=== PATIENT | female | born 1980 | race Caucasian/White ===

== ENCOUNTER 2025-02-14 05:33 | Emergency (ER) | payer SELFPAY ==
--- OUTSIDE RECORDS SUMMARY | 2025-02-07 09:00 | XMS_ITS | Continuity of Care Document ---
Author Organization [employer] Address [address] [facility] [place] [address] Phone Care Team Providers Care Pinking Machine Operator Name Role Phone Velvet Bhakta Unavailable Unavailable Allergies, Adverse Reactions, Alerts Substance Reaction Status Criticality No Known Allergies Active No Inform ation Medications Medication Instructions Dosage Effective Dates (start - stop) Status Comments ProAir HFA 90 mcg/actuation aerosol inhaler inhale 2 puff by inhalation route every 4 - 6 hours as needed - Active levothyroxine 150 mcg tablet take 1 tablet by oral route every day 150 MCG - Active PT NEEDS APPT dutasteride 0.5 mg capsule take 1 capsule by oral route every day 0.5 MG - Active minoxidil 2.5 mg tablet take 2 tablet by oral route every day 5 MG - Active Mounjaro 2.5 mg/0.5 mL subcutaneous pen injector inject (2.5MG) by subcutaneous route every week for 4 weeks 2.5 MG - Active progesterone micronized 100 mg capsule take 2 capsule by oral route every day for 12 days in the evening sequentially per 28 day cycle 200 MG - Active spironolactone 50 mg tablet take 1 tablet by oral route 2 times every day 50 MG - Active ibuprofen 800 mg tablet take 1 tablet by oral route 3 times every day with food 800 MG - Active amoxicillin 875 mg-potassium clavulanate 125 mg tablet take 1 tablet by oral route every 12 hours 1.00 tablet - No Longer Active levothyroxine 50 mcg tablet take 1 tablet by oral route every day 50 MCG - No Longer Active PT NEEDS APPT Serena Perles 100 mg capsule take 1 capsule by oral route 3 times every day as needed for cough - No Longer Active Procedures Procedure Date OFFICE/OUTPATIENT VISIT EST Telehealth OFFICE/OUTPATIENT VISIT EST A Routine Venipuncture OFFICE/OUTPATIENT VISIT EST Routine Venipuncture OFFICE/OUTPATIENT VISIT EST Telehealth OFFICE/OUTPATIENT VISIT EST D OFFICE/OUTPATIENT VISIT EST OFFICE/OUTPATIENT VISIT EST STREP SCREEN OFFICE/OUTPATIENT VISIT EST OFFICE/OUTPATIENT VISIT EST Advance Directives Directive Yes / No Effective Date File Name No Information Encounters Encounter Description Practice Location Reason(s) For Visit Diagnoses Date Provider Providers Copied on Encounter OFFICE/OUTPA TIENT VISIT EST [facility], [address] [facility] [place], [place], [id number], [place] tel:[phone] [facility] Acute (chief complaint) Body mass index (BMI) 20.0-20.9, adultAcute serous otitis media, right earAcute pharyngitis, unspecified 5 Robbie Verdin. [address] [place], [address], [place]. tel:[phone] [facility], [address] [facility] [place], [place], [id number], [place] tel:[phone] [facility] No Information 2 Kyleigh Ellington. [address] [place], [address], [place]. tel:[phone] Telehealth OFFICE/OUTPA TIENT VISIT EST [facility], [address] [facility] [place], [place], [id number], [place] tel:[phone] [facility] cough (chief complaint)T elehealth (chief complaint) Acute upper respiratory infection, unspecifiedNicot ine dependence, cigarettes, uncomplicated 1 Kyleigh Ellington. [address] [place] [address], [address], [place]. tel:[phone] Referring Provider: Rakel Arizmendi, [address] [place] [address], [address]. tel:[phone] OFFICE/OUTPA TIENT VISIT [facility], [address] [place] [address] [place], [place], [id number], [place] tel:[phone] [facility] Office visit (chief complaint) AlopeciaHypothyr oidism, unspecifiedFatig ueBody mass index (BMI) 26.0-26.9, adultNicotine dependence, cigarettes, uncomplicated 1 Kyleigh Ellington. [address] [place] [address], [address], [place]. tel:[phone] Referring Provider: Rakel Arizmendi, [address] [place] [address], [address]. tel:[phone] OFFICE/OUTPA TIENT VISIT [facility], [address] [place] [address], [id number], [place] tel:[phone] [facility] estab with pcp (chief complaint) Body mass index (BMI) 26.0-26.9, adultNeuralgiaTi ngling skinChest painFatigueNonsc arring hair lossNicotine dependence, cigarettes, uncomplicated 1 Kyleigh Ellington. [address] [place] [address], [address], [place]. tel:[phone] Referring Provider: Rakel Arizmendi, [address] [place] [address], [address]. tel:[phone] Telehealth OFFICE/OUTPA TIENT VISIT [facility], [address] [place] [address], [id number], [place] tel:[phone] [facility] Medicine cold symptoms. (chief complaint) Acute upper respiratory infection, unspecified 0 [facility] ons Alam Rosa. [address], [place], [address], [place]. tel:[phone] OFFICE/OUTPA TIENT VISIT [facility], [address] [place] [address] [place], [place], [id number], [place] tel:[phone] [facility] Anxiety (chief complaint) Anxiety 9 العلي Carmina. [address] [place], [place], [id number], [place]. tel:[phone] OFFICE/OUTPA TIENT VISIT [facility], [address] [facility] [place], [place], [id number], [place] tel:[phone] [facility] Sore Throat (chief complaint)D epression (chief complaint) DepressionAnxiet yAcute sinusitisTobacco abuse counselingPerson al history of other specified conditions 9 العلي Carmina. [address] [place], [place], [id number], [place]. tel:[phone] OFFICE/OUTPA TIENT VISIT [facility], [address] [facility] [place], [place], [id number], tel:[phone] [facility] Follow Up of Anxiety (chief complaint)F ollow Up of Depression (chief complaint) AnxietyDepressio n 8 Feiden Adiel. [address] [place], [place], [id number], [place]. tel:[phone] OFFICE/OUTPA TIENT VISIT [facility], [address] [facility] [place], [place], [id number], [place] tel:[phone] [facility] Cold symptoms (chief complaint)F ollow Up of Depression (chief complaint) Acute sinusitisAcute pharyngitisDepre ssionAnxiety 8 Feiden Adiel. [address] [place], [place], [id number], [place]. tel:[phone] Family History Family Member Type Diagnosis Age At Onset No Information Payers Payer name Insurance type Covered republican ID Authoriza tion(s) Self Pay Insurance Plan [id number] Social History Type Description Quantity Date Captured Comments Alcohol Use Details Unknown Caffeine Use Details Unknown Tobacco Use Status Heavy cigarette smok er (20-39 cigs/day) Smoking Status Heavy tobacco smoker Smoking Tobacco Use Details Cigarette: Age Started: 14 Cigarette: 1 Packs per day Sex Female Sexual Orientation Straight or heterosexual Gender Identity Female Vital Signs Date / Time: Height Weight BMI Pulse Rate Blood Pressure Temperature Respiratory Rate Body Surface Area Head Circumference Head Circ. Percentile Wt./Leon. Percentile BMI percentile Pulse Ox Inhaled Ox 2:05 PM 65.00 in 57.062 kg (125.80 lbs) 20.9 3 kg/m eter (2) 77 /min 110/72 mm[Hg] 18 /min 1.62 meter(2) 97 % 21 % Chief Complaint And Reason For Visit From encounter dated '02/07/2025 14:00'. Acute (chief complaint). Description: The client states the symptoms are acute. Pt presents to clinic today for acute visit c/o right ear pain and sore throat x 1-2 days. States her right ear has been throbbing and hurting up into her head giving her a headache. Denies any fever or chills. She is going on a vacation at the end of the week and worried about not being able to get into someone there. Reason For Referral Reason For Referral No Information Plan Of Treatment Date Type Action Status Goal Pap/HPV testing. Due on due Goal Depression scree tyler. Due on due Goal Td vaccine. Due on 25 due Goal Unhealthy drug u se screening. Due on due Goal Tdap. Due on due Goal Hepatitis C scre ening. Due on due Goal Influenza vaccin e. Due on due Goal HPV. Due on due Goal Lipid panel. Due on 025 due Goal Lifestyle educat ion regarding diet completed Goal Td vaccine. Due on 22 due Goal Pap/HPV testing. Due on due Goal Lipid panel. Due on due Goal Depression scree tyler. Due on due Goal Influenza vaccin e. Due on due Goal Tdap. Due on due Goal Pap/HPV testing. Due on due Goal Depression scree tyler. Due on due Goal Lipid panel. Due on due Goal Tdap. Due on due Goal Influenza vaccin e. Due on due Goal Td vaccine. Due on due Goal Influenza vaccin e. Due on due Goal Td vaccine. Due on due Goal Depression scree tyler. Due on due Goal Lipid panel. Due on due Goal Tdap. Due on due Goal Pap/HPV testing. Due on due Goal Lifestyle educat ion regarding diet completed Goal Pap/HPV testing. Due on due Goal Influenza vaccin e. Due on due Goal Tdap. Due on due Goal Td vaccine. Due on due Goal Depression scree tyler. Due on due Goal Lifestyle educat ion regarding diet completed Goal Pap/HPV testing. Due on due Goal Depression scree tyler. Due on due Goal Tdap. Due on due Goal Td vaccine. Due on 19 due Goal Influenza vaccin e. Due on due Goal Influenza vaccin e. Due on due Goal Pap/HPV testing. Due on due Goal Tdap. Due on due Goal Depression scree tyler. Due on due Goal Td vaccine. Due on 19 due Goal Pap/HPV testing. Due on due Goal Tdap. Due on due Goal Td vaccine. Due on 18 due Goal Influenza vaccin e. Due on due Goal Td vaccine. Due on 18 due Goal Tdap. Due on due Goal Depression scree tyler. Due on due Goal Influenza vaccin e. Due on due Goal Pap/HPV testing. Due on due Future Order: Radiology Order MR I Brain w/o Contrast ([id number]), Added on: New Future Order: Radiology Order EC G, Complete ([id number]), Added on: New History Of Present Illness Encounter Date Complaint History Of Prese nt Illness Acute The client state s the symptoms are acute. Pt presents to clinic today for acute visit c/o right ear pain and sore throat x 1-2 days. States her right ear has been throbbing and hurting up into her head giving her a headache. Denies any fever or chills. She is going on a vacation at the end of the week and worried about not being able to get into someone there. Telehealth This visit was c ompleted using an audio tool due to the restrictions of the COVID-19 pandemic. All issues as below were discussed and addressed but no physical exam was performed unless allowed by visual confirmation using the live video and audio tool. If it was felt that the patient should be evaluated in clinic then they were directed there. Patient verbally consented to visit. cough Onset: 17 days a go. The patient describes the cough as hacking. It occurs occasionally. The problem has improved. Context: sick family member. Symptoms are aggravated by exertion. Associated symptoms include cough and fatigue. Pertinent negatives include chills, dyspnea, fever, night sweats, post-nasal drainage, sinus pressure and wheezing. Additional information: still feels rattly." Cough is harsh at times. Has tried taking NyQuil. Son sick before her. ST but that has relieved. No known exposure to Covid+. Not vaccinated. Denies fever or chills. Office visit 40-year-old charlee pittman patient comes in today for follow-up. She was last seen on 12/05/2020 where she had labs drawn at that time. She was having concerns of hair loss. Her labs did indicate hypothyroid. She was started on levothyroxine. She verbalized that she is tolerating the medication well. However, she reports that her hair loss got significantly worse. As a result, she shaved her head. She verbalized that she is concerned that perhaps her breast implants are causing issue. estab with pcp 40-year-old charlee pittman patient comes in today with concerns of hair loss, fatigue, and dry itchy skin. She reports that the symptoms have significantly worsened over the past 3 weeks. She denies any new hair products. She does admit to dying her hair, but reports that she has not done so recently. Her hair does not feel coarse or dry. However, the hair loss is significantly worse.Additionally, patient brought up that she has issues with numbness and tingling to the right side of her face. She reports that this has gone on intermittently for years and has never been evaluated. cold symptoms. cold symptoms. (comments) This v isit was completed using a live video and audio [employer] application tool due to the restrictions of the COVID-19 pandemic. All issues as below were discussed and addressed but no physical exam was performed unless allowed by visual confirmation using the live video and audio tool. If it was felt that the patient should be evaluated in clinic then they were directed there. Patient verbally consented to visit.Reports woke up feeling terrible.Report symptoms started thursday. Reports no SOA or chest pressure. Reports nasal congestion, body aches, and headache that wont go away.Reports some scratchy throat and mild cough. Denies loss of taste or smell.Has no insurance and therefore doesn't want to have to pay for any swabs.Patient reports she is currently quarantining. Anxiety Anxiety (comments) F/u on Wellbu harlan therapy. Pt states her Wellbutrin is not working as well as her Prozac did in the past. She still notes some irritability. She is unsure if this is from lack of benefit of Wellbutrin therapy or if this is part of her recovery from hysterectomy that she had in Jul 2018. She did not like Prozac therapy r/t wt gain, and wanted to try Wellbutrin. She also notes some impulsive eating thoughts and would like to try topamax therapy to see if it will control these thoughts. Topamax has been successful in the past.She denies SI/HI and SE. Sore Throat (comments) C/o sore throat x 2 weeks. States feels scratchy and worse in AM. Cough and nasal stuffiness. Pt had hysterectomy last Thursday--feeling well and resting at home as directed. Depression Sore Throat Depression (comments) Pt was pre viously treated with Prozac but did not like it because of weight gain. Pt states she had eating disorder and is concerned with gaining wt. States she gained 40# with Prozac. Pt is interested in starting Wellbutrin to help with depression, prevent wt gain, and to help with smoking cessation.Pt had used topamax when younger to help with eating disorder (bulimia) which she found helpful. She is interested in starting that med again. Pt is not currently in counseling. Follow Up of Depression States t hat she used to be on Topamax when she was dealing with her bulemia, making it easier not to binge and purge. Follow Up of Anxiety This is a f ollow up visit. The patient does not present with anxious/fearful thoughts, depressed mood, difficulty concentrating, difficulty falling asleep, difficulty staying asleep, excessive worry, fatigue, racing thoughts, restlessness or thoughts of or suicide. The patient denies any irritability. Additional information: States that she is doing much better on the prozac but has noticed that she still has impulses to do bad things such as bahena, shop etc. Follow Up of Depression This is an initial visit. The symptoms occur constantly. The patient presents with depressed mood, difficulty concentrating and fatigue but denies anxious/fearful thoughts, decreased need for sleep, difficulty falling asleep, difficulty staying asleep, excessive worry, racing thoughts, restlessness or thoughts of or suicide. The patient's risk factors include history of depression. The patient's risk factors exclude family history of depression, family history of anxiety, family history of bipolar disorder and history of suicidal attempts. The patient denies any aggravating factors. Interventions the patient has tried have not provided any relief. The Follow Up of Depression is associated with irritability. The patient denies any headache and nausea. Additional information: Has tried lexapro, celexa, prozac in the past and feels that prozac worked the best and would like to get back on it. Cold symptoms Onset: 3 weeks a go. The patient describes the cough as productive (of yellow sputum). The problem has become gradually worse. Symptoms are aggravated by lying down. There are no relieving factors. Associated symptoms include chills, cough, dyspnea, fatigue, nasal congestion, sinus pressure and sore throat. Pertinent negatives include fever. Additional information: Symptoms have been off and on but continue to get worse. Nasal drainage is thick and yellow. Functional Status Date Functional Assessmen t Pain Score 07/29 Instructions Date Instruction Additional Infor mation Giving encouragement to exercise Related to Body mass index [BMI] 20.0-20.9, adult Lifestyle education regarding di et Related to Body mass index [BMI] 20.0-20.9, adult Abx prescribedProAir prescribed Tessalon Perles prescribedRecommended taking OTC antihistamine Increase fluids and restEncouraged to use humidifier at bedsideContact office if symptoms worsen or does not improveWorsening precautions discussed Related to Acute upper respiratory infection, unspecified Encouraged pt to stop smoking Re lated to Nicotine dependence, cigarettes, uncomplicated Encouraged patient t o discontinue smoking. Related to Nicotine dependence, cigarettes, uncomplicated Labs todayRecommende d to increase water intakeTake daily multivitamin Consider referral to specialist Related to Alopecia Giving encouragement to exercise Related to Body mass index [BMI] 26.0-26.9, adult Lifestyle education regarding di et Related to Body mass index [BMI] 26.0-26.9, adult Would like to order MRI brain w/o contrast ([facility] financial assistance information provided to pt, instructed pt to contact clinic when arrangements have been madeWorsening precautions discussed Related to Tingling skin Encouraged pt to stop smoking Re lated to Nicotine dependence, cigarettes, uncomplicated Continue multi-vitam in Encouraged to avoid over-processing or excessive coloring of hairLabs today Related to Nonscarring hair loss EKG- sinus rhythmLab s todayWorsening precautions discussed Related to Chest pain Labs today Related to Neura lgia Giving encouragement to exercise Related to Body mass index [BMI] 26.0-26.9, adult Lifestyle education regarding di et Related to Body mass index [BMI] 26.0-26.9, adult Discussed with annette aparicio that it appears to be caused by a virus as there is no obvious source of bacterial infection at this time on exam. patient verbalized understanding. Increase fluid intake.Increase vitamin C intake. Wash hands frequently. Avoid sick contacts. Get plenty of rest.Humidifier in room to alleviate symptoms.Okay to use OTC mucinex, cough drops, and vicks to alleviate symptoms.Okay to use OTC flonase, one spray in each nostril daily to alleviate symptoms.Okay to use OTC Tylenol as needed for symptom relief, not to exceed 3,000mg a day.If symptoms worsen or fail to improve in a week, please return to clinic.Discussed s/s of emergency and to go to ER if these occur and patient verbalized understanding. Follow up as indicated.Discussed return, ER, and COVID 19 precautions.Patient verbalizes understanding of the above education and instructions. Related to Acute upper respiratory infection, unspecified Continue WellbutrinS tart Topamax 25mg BIDPt to call us Thursday with a status reportF/u 1 month with labs--cmp, cbc, tsh Related to Anxiety Follow up with surgeon as schedu led Related to Personal history of other specified conditions AugmentinSalt water gargles PRNRestIncrease fluid intake; non-caffeinated; warm teas with honeyTylenol or Ibuprofen for pain and fever PRNFollow up as needed. Call office for worsening symptoms or concerns. Related to Acute sinusitis see #1 Related to Anxie ty Start Wellbutrin XLMonitorF/u 1 month Related to Depression 1. Sore throat instr uctions given: Most sore throats last 3 to 5 days. 2. Get extra sleep, drink extra fluids, take a non-prescription pain reliever, suck on hard candy or throat lozenges, use OTC throat spray. 3. [over 8 yo] gargle with warm salt water - about 1/4 teaspoon of salt in a cup of water.4. The patient was advised to call the office if symptoms worsen or do not improve. Related to Acute pharyngitis 1. Get extra sleep, 2. Use a humidifier , 3. Drink extra fluids, 4. Use saline nose drops, *5. Take a non-prescription pain reliever , 6. Take OTC cold and cough medicine 7. The patient was advised to call the office if symptoms worsen or do not improve. Related to Acute sinusitis Assessments Type Assessment Date assessment Body mass index (BMI) 20.0-20.9, adult assessment Acute serous otitis media, right ear assessment Acute pharyngitis, unspecified J Mental Status Date Cognitive Assessment Orientation - [place] ed to time, place, person, situation. Patient Care Teams Name Effective Dates (start - stop) Status Members No Information
--- OUTSIDE RECORDS SUMMARY | 2025-02-14 04:27 | XMS_ITS | Encounter Summary ---
Author Organization [facility] Address [address] [place] [address] Care Team Providers Care Stick Puller Name Role Phone Unavailable Primary Care Provider Unavailabl e Reason for Visit * Reason Comments Vaginal Pain cyst Encounter Details Date Type Department Care Team (Late st Contact Info) Description 02/14/2025 4:27 AM CDT - 02/14/2025 4:50 AM CDT Emergency [facility] Emergency Medicine [address] [place] [address] Pollo Guevara MD [address] [facility] [address] [place] [phone] Pelvic pain in female (Primary Dx) Discharge Disposition: Home or Self Care Social History Tobacco Use Types Packs/Day Years Used Date Smoking Tobacco: Every Day Cigarettes Smokeless Tobacco: Never Tobacco Cessation:Ready to Q uit: Not Asked; Counseling Given: Not Answered Alcohol Use Standard Drinks/Week Comments Not Currently 0 (1 standard drink = 0.6 oz pur e alcohol) Comments No Sex and Gender Information Value Date Recorded Sex Assigned at Not on file Legal Sex Female 4:04 AM CDT Gender Identity Not on file Sexual Orientation Not on file documented as of this encounter Last Filed Vital Signs Vital Sign Reading Time Taken Comments Blood Pressure 104/68 02/14/2025 4:13 AM CDT Pulse - - Temperature 36.6 C (97.8 F) 02/14/2025 4:13 AM CDT Respiratory Rate 18 02/14/2025 4:13 AM CDT Oxygen Saturation 99% 02/14/2025 4:13 AM CDT Inhaled Oxygen Concentration - - Weight 57.5 kg (126 lb 12.8 oz) 02/14/2025 4:13 AM CDT Height 157.5 cm (5' 2 ) 02/14/2025 4:13 AM CDT Body Mass Index 23.19 02/14/2025 4:13 AM CDT documented in this encounter Discharge Instructions * Discharge Instructions* Pollo Guevara MD - 02/14/2025 4:40 AM CDT Take naproxen or ibuprofen scheduled for the next 4 to 5 days. Try to avoid pressure on the area hecan also use a warm compress not hot enough to burn every 1-2 hours. When you return home follow-upwith your manufacturing project manager or primary care provider The area becomes much more painful starts to drain or interferes with urination or bowel movements return to the emergency department * Attachments The following attachments cannot be sent through Care Everywhere. * Bartholin Gland Cyst (Beninese) documented in this encounter Medications at Time of Discharge levothyroxine 150 mcg tablet Take 150 mcg by mouth daily in the morning. spironolactone (ALDACTONE) 50 mg tablet Take 100 mg by mouth daily. progesterone micronized (PROMETRIUM) 100 mg Capsule Take 100 mg by mouth daily. dutasteride (AVODART) 0.5 mg Capsule Take 0.5 mg by mouth daily. minoxidiL (LONITEN) 2.5 mg tablet Take 2.5 mg by mouth daily. tirzepatide 2.5 mg/0.5 mL Pen Injector Inject 2.5 mg by subcutaneous injection every 7 days. amoxicillin-clav ulanate (AUGMENTIN) 875-125 mg tablet Take 1 Tablet by mouth every 12 hours. documented as of this encounter ED Notes * Elvia Morales RN - 02/14/2025 4:24 AM CDT Gerri Lance 45 y.o. female, arrived to the ED via TRANSPORTATION: private vehicle for complaints of cyst in mario alberto area with pain. Per patient noticed cyst about 1.5 years ago, three days ago began to hurt has gradually gotten worse, rates pain 5/10 constant burning and stabbing, states it is the size of ping pong ball, unable to sit or stand. Chief Complaint Patient presents with Vaginal Pain cyst . Vitals taken, patient placed on monitor, clothing removed as needed per policy, privacy provided to patient. Respiratory: WDL - Regular rhythm, symmetrical chest expansion, no dyspnea , Cardiac/Circulatory: WDL - No numbness or tingling, no chest pain , Skin: WDL - Normal color for ethnicity, skin intact, patient is Alert and Oriented x4, pain scale: 5/10, findings; bleeding: without any bleeding noted. Behavior during evaluation: appropriate. Belongings secured, patient Weapons assessment: denied possession of any weapons or firearms at this time. Patient comforted, all questions answered to the best of the staff's ability, education performed, and left patient in the room with the call light in reach, bed in lowest position, wheels locked, side rails up, at bedside. * Pollo Guevara MD - 02/14/2025 4:04 AM CDT HISTORY OF PRESENT ILLNESS Patient is a 45-year-old with medical history of thyroid disease. She is here with complaints of swelling and painful mass in her perineal area. It is on the right side posterior lateral area inside the labia majora She states this mass has been there for the last 2 years has not caused her any problems however after a long drive from [facility] she noticed becoming much more painful she is able to get some relief with changing positions but when she palpates or sits forward pain is much more severe. She tried a sitz bath does not take any medicine or other therapies for this. No drainage no difficulty urinating or having a bowel movement no history of gynecological cancer Denies fevers chest pain shortness of breath Vaginal Pain PAST MEDICAL HISTORY REVIEWED MEDICAL: Patient has a past medical history of Thyroid disease. SURGICAL: Patient has a past surgical history that includes hysterectomy and breast augmentation (Bilateral). ALLERGIES Patient has no known allergies. PHYSICAL EXAM INITIAL VS BP: 104/68 (02/14/25 0413), Heart Rate: 84 bpm (02/14/25 0413), Resp: 18 (02/14/25 0413), Pulse: (not recorded), Temp: 97.8 ??F (36.6 ??C) (02/14/25412), Temp src: Temporal (02/14/25412), SpO2: 99 % (02/14/25412), Height: 5' 2 (157.5 cm) (02/14/25412), Weight: 57.5 kg (126 lb 12.8 oz) (02/14/25412), BMI (Calculated): 23.18 (02/14/25412) No LMP recorded. Patient has had a hysterectomy. Physical Exam Vitals and nursing note reviewed. Exam conducted with a mineral economist present. Constitutional: Appearance: Normal appearance. HENT: Head: Normocephalic and atraumatic. Nose: Nose normal. Cardiovascular: Rate and Rhythm: Normal rate and regular rhythm. Pulmonary: Effort: Pulmonary effort is normal. Breath sounds: Normal breath sounds. Genitourinary: Labia: Right: Lesion present. Comments: Golf ball sized area of induration with no fluctuance discharge or erythema inside the labia majora on the right perineum distant with a large Bartholin cyst Neurological: Mental Status: She is alert. DIAGNOSTICS LAB: No data to display RADIOLOGY: No orders to display EKG: PROCEDURES Procedures MEDICAL DECISION MAKING AND PLAN OF CARE Medical Decision Making Patient is a 45-year-old with a lesion in her perineum Most likely a large bartholin. Given size location within the labia minora and lack of ultrasound capabilities at this time would not recommend incision. Does not appear to be infected would recommend this be dealt with by gynecology. In the meantime will have her use sitz bath's warm compresses and anti- inflammatories and try to avoid pressure on the area. No signs of infections at this time butdid give her return precautions to return if she has any discharge fluctuation or difficulty urinating or having a bowel movement After speaking with and examining patient, reviewing today's visit, labs, xray and extensive nursesnotes- I feel patients complaints are not acute nor life threatening. The patient's evaluation, exam, findings and plan of care were discussed with the patient here in the emergency department. I have discussed that this focused care is based on an urgent and emergent basis and in no way representscomplete or continued care of their entire health conditions and that follow up care is an important part of the care and plan they have received here in the emergency department. They have voiced understanding and are comfortable with the plan of care. Risk Prescription drug management. Clinical Scoring & Consults Medications Administered During the ED Stay from 02/14/2025 0404 to 02/14/2025444 Date/Time Order Dose Route Action 02/14/2025443 CDT ibuprofen (MOTRIN) tablet 400 mg 400 mg Oral Given . New Prescriptions for this Encounter LAST VS BP: 104/68 (02/14/25412), Heart Rate: 84 bpm (02/14/25412), Resp: 18 (02/14/25412), Pulse: (not recorded), Temp: 97.8 ??F (36.6 ??C) (02/14/25412), Temp src: Temporal (02/14/25412), SpO2: 99 % (02/14/25412) CLINICAL IMPRESSION Final diagnoses: [R10.2] Pelvic pain in female (Primary) DISPOSITION, EDUCATION AND MEDICATION RECONCILIATION Medications reconciled. See after visit summary for patient education on discharged patients. ED Disposition ED Disposition Discharge Condition Stable User Pollo Guevara MD Date/Time ThuFeb 14, 2025 4:39 AM Comment -- ATTESTATION STATEMENTS documented in this encounter Plan of Treatment Not on file documented as of this encounter Visit Diagnoses Diagnosis Pelvic pain in female- Primary Unspecified symptom associated with female genital organs documented in this encounter Administered Medications Inactive Administered Medications - up to 3 most recent administrations Medication Order MAR Action Action Date Dose Rate Site ibuprofen (MOTRIN) tablet 400 mg 400 mg, Oral, ONE TIME ONLY, 1 dose, On Thu02/14/25 at 044, Routine Given 02/14/2025 4:44 AM CDT 400 mg documented in this encounter Active and Recently Administered Medications Times are shown in CDT. Scheduled Medication Order 02/12/2025 02/13/2025 02/14/2025 ibuprofen (MOTRIN) tablet 400 mg (COMPLETED) 400 mg, Oral, ONE TIME ONLY, 1 dose, On Thu02/14/25 at 0445, Routine 0444 (Given - Provid er: Elvia Morales, RN) documented in this encounter
--- OUTSIDE RECORDS SUMMARY | 2025-02-14 05:41 | XMS_ITS | Encounter Summary ---
Author Organization [facility] Address [address] [facility] Attn: Epic Prelude ADT [place] [id number] Care Team Providers Care Ccnp Name Role Phone Unavailable Primary Care Provider Unavailabl e Encounter Details Date Type Department Care Team (Latest Contact Info) Description 02/14/2025 Travel Social History Tobacco Use Types Packs/Day Years Used Date Smoking Tobacco: Every Day Cigarettes Smokeless Tobacco: Never Alcohol Use Standard Drinks/Week Comments Not Currently 0 (1 standard drink = 0.6 oz pur e alcohol) Comments No Sex and Gender Information Value Date Recorded Sex Assigned at Not on file Legal Sex Female 4:04 AM CDT Gender Identity Not on file Sexual Orientation Not on file documented as of this encounter Plan of Treatment Not on file documented as of this encounter Visit Diagnoses Not on filedocumented in this encounter
--- OUTSIDE RECORDS SUMMARY | 2025-02-14 05:41 | XMS_ITS | Clinical Summary ---
Author Organization [facility] Address [address] [facility] [address] [place] [address] Phone Care Team Providers Care Certified Court Interpreter Name Role Phone Unavailable Primary Care Provider Unavailabl e Allergies No known active allergies Medications levothyroxine 150 mcg tablet Take 150 mcg by mouth daily in the morning. Active spironolactone (ALDACTONE) 50 mg tablet Take 100 mg by mouth daily. Active progesterone micronized (PROMETRIUM) 100 mg Capsule Take 100 mg by mouth daily. Active dutasteride (AVODART) 0.5 mg Capsule Take 0.5 mg by mouth daily. Active minoxidiL (LONITEN) 2.5 mg tablet Take 2.5 mg by mouth daily. Active tirzepatide 2.5 mg/0.5 mL Pen Injector Inject 2.5 mg by subcutaneous injection every 7 days. Active amoxicillin-cla vulanate (AUGMENTIN) 875-125 mg tablet Take 1 Tablet by mouth every 12 hours. Active Encounters Date Type Department Care Team Description 02/14/2025 4:27 AM CDT - 02/14/2025 4:50 AM CDT Emergency [facility] Emergency Medicine [address] [facility] [address] [place] [phone] Pollo Guevara MD Pelvic pain in female (Primary Dx) Discharge Disposition: Home or Self Care 02/14/2025 Travel from Last 3 Months Social History Tobacco Use Types Packs/Day Years [...] on file Sexual Orientation Not on file Last Filed Vital Signs Vital Sign Reading [...] Mass Index 23.19 02/14/2025 4:13 AM CDT Plan of Treatment Health Maintenance Due Date Last Done Comments DTAP/TDAP/TD VACCINES (1 - Tdap) 1998 HEPATITIS B VACCINES (1 of 3 - 19+ 3-dose series) 1998 HPV/Cotest (21-29) 01/28/2000 CERVICAL CANCER SCREENING 2009 HPV/Cotest (30-65) 2009 PAP SMEAR 2009 BREAST CANCER SCREENING 2019 COLORECTAL SCREENING 01/28/2024 Colorectal Cancer Screening 01/28/2024 FIT-DNA Q 3 years 01/28/2024 FIT/FOBT Q 1 year 01/28/2024 Flex Sig/CT Colonography Q 5 years 01/28/2024 INFLUENZA VACCINE (#1) 2025 HPV VACCINES Aged Out No longer eligi ble based on patient's age to complete this topic
[2025-02-14 05:42] VITALS: BP 125/73; PULSE 65; RESP 16; TEMP 36.6; O2SAT 98; BMI 23.0
[2025-02-14 06:22] VITALS: BP 109/61; PULSE 69; O2SAT 97
[2025-02-14 06:22] LABS: Glucose Urine UA Negative (Normal); Nitrate Urine Negative (Negative); Specific Gravity, Urine 1.029 (1.005-1.030)
[2025-02-14 06:26] LABS: Add Urine Microscopic? YES
--- NOTE | 2025-02-14 06:42 | W.ED.FEMALGU ---
HPI - Female Genitourinary General: Chief complaint: Urogenital-Female Stated complaint: Cyst On Vagina\Pain Time Seen by Provider: 02/14/25 05:53 History of Present Illness: 45-year-old female who presents to the emergency room complaining of a labial cyst and pain. Patient states it has been present for several months. Increasing in size and pain for last few days. She does not have any drainage. Associated symptoms: Deny vaginal discharge Related Data Home Medications ?Medication ?Instructions ?Recorded ?Confirmed amoxicillin 875 mg-potassium 1 tab PO BID 02/14/25 02/14/25 clavulanate 125 mg tablet dutasteride 0.5 mg capsule 0.5 mg PO DAILY 02/14/25 02/14/25 levothyroxine 150 mcg capsule 150 mcg PO DAILY 02/14/25 02/14/25 minoxidil 2.5 mg tablet 2.5 mg PO DAILY 02/14/25 02/14/25 progesterone micronized 100 mg 100 mg PO QAM 02/14/25 02/14/25 capsule spironolactone 50 mg tablet 50 mg PO DAILY 02/14/25 02/14/25 tirzepatide (weight loss) 7.5 7.5 mg SUBCUT 02/14/25 02/14/25 mg/0.5 mL subcutaneous pen injector (Zepbound) Previous Rx's ?Medication ?Instructions ?Recorded hydrocodone 5 mg-acetaminophen 325 1 tab PO Q6H PRN pain #10 tabs 02/14/25 mg tablet oxycodone-acetaminophen 5 mg-325 1 tab PO Q8H PRN pain #20 tabs 02/14/25 mg tablet (Percocet) Allergies Allergy/AdvReac Type Severity Reaction Status Date / Time No Known Allergies Allergy Verified 02/14/25 09:46 Review of Systems : Denies: vaginal bleeding or vaginal discharge PFS ED PFSH: Family History Denies family history of Colon cancer Ovarian cancer Diabetes Heart disease Breast cancer Hypertension Uterine cancer Thyroid disease Stroke Social History Smoking and tobacco/nicotine status: never used tobacco/nicotine Physical Exam : OTHER: Nurse present patient placed in dorsolithotomy position patient has a large bore Cage and cyst approximately 2 to 3 cm in diameter right vaginal wall extending posteriorly. No active drainage no pointing. Course Vital Signs: Vital signs: Vital Signs Temperature 97.9 F 02/14/25 05:42 Pulse Rate 64 02/14/25 07:10 Respiratory Rate 16 02/14/25 07:10 Blood Pressure 98/62 02/14/25 07:10 Pulse Oximetry 98 02/14/25 07:10 Oxygen Delivery Me thod Room Air 02/14/25 05:42 MDM - Female Medical Decision Making Patient has a rather large Bartholin cyst extending towards the perineum. No redness erythema or induration at this time no sign of active infection. Will discharge patient home with talk to Dr. Porter who is on for gynecology who will see her in the office and offered definitive care. Advised patient to remain n.p.o. until she sees him. She has appointment with Dr. Porter at his office at 1030 this morning. No emergent condition at this time this can be managed as an outpatient through the office Medical Records I reviewed the patient's medical records. Lab Data I reviewed the patient's lab results. Laboratory Results HCG, Qual Negative (Negative) 02/14/25 06:15 Urine Color Dark yellow (Yellow) A 02/14/25 06:08 Urine Appearance Clear (CLEAR) 02/14/25 06:08 Urine pH 5.5 (5-7) 02/14/25 06:08 Ur Specific [place] 1.029 (1.005-1.030) 02/14/25 06:08 Urine Protein Trace (Negative) A 02/14/25 06:08 Urine Glucose (UA) Negative (Normal) 02/14/25 06:08 Urine Ketones Trace (Negative) 02/14/25 06:08 Urine Blood Negative (Negative) 02/14/25 06:08 Urine Nitrate Negative (Negative) 02/14/25 06:08 Urine Bilirubin Negative (Negative) 02/14/25 06:08 Urine Urobilinogen 1.0 mg/dL (Negative) 02/14/25 06:08 Ur Leukocyte Esterase Negative (Negative) 02/14/25 06:08 Urine RBC 0-2 /hpf (0-2) 02/14/25 06:08 Urine WBC 0-5 /hpf (0-5) 02/14/25 06:08 Ur Squamous Epith Cells 0-5 /hpf (0-5) 02/14/25 06:08 Amorphous Sediment Not Reportable 02/14/25 06:08 Urine Bacteria None seen /hpf (NONE) 02/14/25 06:08 Hyaline Casts 2.05 /lpf 02/14/25 06:08 No radiology studies performed this visit Discharge Plan Discharge Patient Disposition: Home Clinical Impression: Cyst of Bartholin's gland duct Condition: Stable Prescriptions: New hydrocodone-acetaminophen 5-325 mg tablet 1 tab PO Q6H PRN (Reason: pain) Qty: 10 0RF No Action minoxidil 2.5 mg tablet 2.5 mg PO DAILY spironolactone 50 mg tablet 50 mg PO DAILY progesterone micronized 100 mg capsule 100 mg PO QAM Rx Instructions: off 7 days; repeat cycle amoxicillin-pot clavulanate 875-125 mg tablet 1 tab PO BID dutasteride 0.5 mg capsule 0.5 mg PO DAILY levothyroxine 150 mcg capsule 150 mcg PO DAILY Zepbound 7.5 mg/0.5 mL pen injector 7.5 mg SUBCUT oxycodone-acetaminophen [Percocet] 5-325 mg tablet 1 tab PO Q8H PRN (Reason: pain) Qty: 20 0RF Discharge Orders: Discharge ED (Routine); Ordered 02/14/25 Ordered By: Aki Marion Patient Instructions: Bartholin Cyst (ED), Opioid Safety, Pain Management, Patient Portal & Guille Instructions Activity Restrictions/Additional Instructions: Thank you for choosing [facility] for your healthcare needs today. It is very important that you follow up as instructed or that you return to the Emergency Department should you have concerns or if your condition changes or worsens in any way. You were seen in the emergency room with a Bartholin's cyst on the right labia. I discussed with a revenue accounting manager on-call Dr. Porter. He will see you this morning at 1030 in his office. Print Language: Urdu Coding Level of Care Code ED Seamless Hosiery Knitter for [place] Lew
[2025-02-14 06:54] LABS: HCG, Serum Qual Negative (Negative)
[2025-02-14 07:10] VITALS: BP 98/62; PULSE 64; RESP 16; O2SAT 98
== END 2025-02-14 07:25 | disposition home or self-care (01) ==
PROVIDERS: Emergency Provider Family Medicine
DX: N75.0 Cyst of Bartholin's gland (principal)
CPT/HCPCS: 36415; 81001; 84703; 99283

== ENCOUNTER 2025-02-14 10:59 | Day surgery (SDC) | payer SELFPAY ==
[2025-02-14] VITALS (8 sets, daily range): BP systolic 94–104; BP diastolic 63–71; PULSE 60–92; RESP 16–18; TEMP 36.1–36.4; O2SAT 94–100; BMI 23.0
--- NOTE | 2025-02-14 13:48 | ANES.PREANE2 ---
Pre-Anesthetic Assessment Height/Weight: Height 5 ft 2 in Weight 126 lb O2 Del Method Room Air 02/14/25 13:19 Preop Diagnosis: bartholins cyst Operation Date: 02/14/25 14:55 Proposed Procedures p Bartholin's Cyst Excision 45267, N75.0(Not Applicable) - Jerome Leggett MD Was Beta Sixto taken within 24 hours: N/A Was Clonidine taken within 24 hours: N/A Last intake: Intake Last Liquid Date 02/14/25 Last Liquid Time 03:00 Last Solid Date 02/13/25 Last Solid Time 21:00 Social Tobacco and No alcohol Exam alert, oriented x 3, clear to auscultation bilaterally and regular rate & rhythm Airway Submandibular: within normal limits Cervical ROM: within normal limits Mallampati: Class II Dentition: full Anesthetic Plan ASA status: 2 Anesthesia: General Other: No prior issues with anesthesia NPO since yesterday evening History of hypothyroidism on Synthroid Tirzepatide for weight loss, last taken 02/06/2025 Patient recently had a ear infection was placed on amoxicillin 3 days ago hCG negative Plan for general anesthesia Medications/Allergies Home Medications ?Medication ?Instructions ?Recorded ?Confirmed ?Last Taken ?Type amoxicillin 875 mg-potassium 1 tab PO BID 02/14/25 02/14/25 02/14/25 History clavulanate 125 mg tablet dutasteride 0.5 mg capsule 0.5 mg PO DAILY 02/14/25 02/14/25 02/13/25 History hydrocodone 5 mg-acetaminophen 325 1 tab PO Q6H PRN pain #10 tabs 02/14/25 02/14/25 02/13/25 Rx mg tablet levothyroxine 150 mcg capsule 150 mcg PO DAILY 02/14/25 02/14/25 02/13/25 History minoxidil 2.5 mg tablet 2.5 mg PO DAILY 02/14/25 02/14/25 02/13/25 History progesterone micronized 100 mg 100 mg PO QAM 02/14/25 02/14/25 Unknown History capsule spironolactone 50 mg tablet 50 mg PO DAILY 02/14/25 02/14/25 02/13/25 History tirzepatide (weight loss) 7.5 7.5 mg SUBCUT 02/14/25 02/14/25 02/06/25 History mg/0.5 mL subcutaneous pen injector (Zepbound) Allergies Allergy/AdvReac Type Severity Reaction Status Date / Time No Known Allergies Allergy Verified 02/14/25 09:46 Current Medications Generic Name Dose Route Start Last Admin Trade Name Ortiz PRN Reason Stop Dose Admin Sodium Chloride 1,000 mls @ 30 mls/hr 02/14/25 13:45 02/14/25 13:44 Sodium Chloride 0.9% IV 02/15/25 13:44 30 mls/hr .Q24H CORRINE Administration PFSH Anesthesia Family History (Updated 02/14/25 @ 09:47 by Carmen Castaneda [facility]) Denies family history of Colon cancer Ovarian cancer Diabetes Heart disease Breast cancer Hypertension Uterine cancer Thyroid disease Stroke Social History Smoking and tobacco/nicotine status: never used tobacco/nicotine
--- NOTE | 2025-02-14 13:58 | W.PM.OPSFHP ---
Same Day Surgery H&P Indication for Procedure/HPI DATE OF PROCEDURE: February 14, 2025 CHIEF COMPLAINT/INDICATIONFOR SURGICAL PROCEDURE: right Bartholins' abscess PREOP DIAGNOSIS: bartholins cyst PLANNED PROCEDURE: Operation Date: 02/14/25 14:55 Proposed Procedures p Bartholin's Cyst Excision [id number], N75.0(Not Applicable) - Jerome Leggett MD 45 y.o. h/o hysterectomy c/o right vulvar pain x 1 month on exam, found to have a 5-6 cm right Bartholins' abscess Medications/Allergies* Home Medications ?Medication ?Instructions ?Recorded ?Confirmed ?Type amoxicillin 875 mg-potassium 1 tab PO BID 02/14/25 02/14/25 History clavulanate 125 mg tablet dutasteride 0.5 mg capsule 0.5 mg PO DAILY 02/14/25 02/14/25 History levothyroxine 150 mcg capsule 150 mcg PO DAILY 02/14/25 02/14/25 History minoxidil 2.5 mg tablet 2.5 mg PO DAILY 02/14/25 02/14/25 History progesterone micronized 100 mg 100 mg PO QAM 02/14/25 02/14/25 History capsule spironolactone 50 mg tablet 50 mg PO DAILY 02/14/25 02/14/25 History tirzepatide (weight loss) 7.5 7.5 mg SUBCUT 02/14/25 02/14/25 History mg/0.5 mL subcutaneous pen injector (Zepbound) Allergies/Adverse Reactions Allergy/AdvReac Type Severity Reaction Status Date / Time No Known Allergies Allergy Verified 02/14/25 09:46 Current Medications: Generic Name Dose Route Start Last Admin Trade Name Freq PRN Reason Stop Dose Admin Sodium Chloride 1,000 mls @ 30 mls/hr 02/14/25 13:45 02/14/25 13:44 Sodium Chloride 0.9% IV 02/15/25 13:44 30 mls/hr .Q24H CORRINE Administration Pertinent History/Comorbid Conditions* Family History (Updated 02/14/25 @ 09:47 by Carmen Castaneda CMA) Denies family history of Colon cancer Ovarian cancer Diabetes Heart disease Breast cancer Hypertension Uterine cancer Thyroid disease Stroke Social History Smoking and tobacco/nicotine status: never used tobacco/nicotine Pertinent Exam Findings alert, oriented x 3, clear to auscultation bilaterally and regular rate & rhythm Recommendations Surgery/Procedure today Other Plans: plan incision, drainage, and packing of right Bartholin's abscess Coding Level of Care Code Acute Code for Chg Fwd
--- NOTE | 2025-02-14 14:05 | PM.OP ---
Operative Report Date of procedure: February 15, 2025 Pre-op diagnosis: Right Bartholin?s gland abscess Post-op diagnosis: same Post-op findings: Right Bartholin?s gland abscess, depth of 8 cm, width of 4 cm, length of 6 cm Copious amount of blood-tinged purulent material Aerobic and anaerobic cultures done Procedure done: incision, drainage and packing of Right Bartholin?s gland abscess Cultures of purulent material from Right Bartholin?s gland abscess Implants: none Specimens removed/disposition: Cultures of purulent material from Right Bartholin?s gland abscess Surgeon: Jerome Leggett MD Anesthesia: MAC Estimated blood loss (mL): 5 Complications: none Findings: Right Bartholin?s gland abscess, depth of 8 cm, width of 4 cm, length of 6 cm Copious amount of blood-tinged purulent material Aerobic and anaerobic cultures done Condition: stable Disposition: PACU Brief History: 45 y.o. with h/o recurrent right Bartholin?s abscess presented with one month history of vaginal pain and swelling Procedure: Informed consent was obtained for incision, drainage, and packing of right Bartholin?s gland abscess. The patient was taken to the OR and placed on table. MAC anesthesia was given. Patient was then placed in dorsolithotomy position. The perineum was prepped and draped in the usual sterile fashion. A fluctuant right Bartholin?s abscess was identified. A 3 cm incision was made on the vulvar surface of the abscess. Immediately, pus and purulent material was obtained. Cultures done. The abscess cavity was explored and loculations cleared. Saline was used to irrgate the abscess cavity. A 0.25-inch iodoform was then used to pack the abscess cavity. No bleeding was seen. The patient was then placed supine, awakened, and taken to the RR in good condition. Postoperative condition: good Blood loss: 5 cc Complications: none Sponge and instrument counts correct x two
--- NOTE | 2025-02-14 14:32 | W.PM.OPSUD ---
Surgery/Procedure H&P Update DATE OF PROCEDURE: February 14, 2025 DATE H&P PERFORMED: 02/14/25 H&P UPDATE INFORMATION: I have reviewed H&P completed within last 30 days, I have examined patient prior to procedure and No changes to prior documentation PREOP DIAGNOSIS: bartholins cyst PLANNED PROCEDURE: Operation Date: 02/14/25 14:55 Proposed Procedures p Bartholin's Cyst Excision [id number], N75.0(Not Applicable) - Jerome Leggett MD
--- NOTE | 2025-02-14 16:40 | ANE.PACU2 ---
Inpatient post-anesthesia follow up: Airway intact: Yes Vital signs: Temperature 97 F Pulse Rate 72 Respiratory Rate 18 Blood Pressure 98/67 Pulse Oximetry 100 Oxygen Delivery Me thod Room Air Oxygen Flow Rate Fraction of Inspir ed Oxygen Hydration adequate: Yes Nausea and vomiting: No Pain level: 2 Mental status: Baseline
== END 2025-02-14 16:40 | disposition home or self-care (01) ==
PROVIDERS: Visit Provider Obstetrics & Gynecology
PROC: (CPT 56740; principal; 2025-02-14 14:45)
DX: N75.1 Abscess of Bartholin's gland (principal); E03.9 Hypothyroidism, unspecified; Z90.710 Acquired absence of both cervix and uterus
CPT/HCPCS: 56420; 87070; 87075; 87205; J1100; J2250; J2405; J2704; J3010; J7030; J9999